=== PATIENT | male | born 1955 | race Caucasian/White ===

== ENCOUNTER 2018-12-23 17:53 | Emergency (ER) | payer BC ==
--- NOTE | 2018-12-23 18:09 | EDPHY ---
H & P Time Seen by Provider: 12/23/18 18:03 HPI/ROS: CHIEF COMPLAINT: Left shoulder pain HISTORY OF PRESENT ILLNESS: Patient is a 63-year-old man who was playing soccer and fell onto his left shoulder. His arm was tucked against his body. He has pain to his distal clavicle and shoulder. No neck or head pain. He also has some mild pain in his right hip and hamstring area that he thinks is a muscle pull. He has been able to ambulate without difficulty. He denies other injuries. Severity: Moderate Modifying factors: Pain worsens with movement REVIEW OF SYSTEMS: Constitutional: denies: chills, fever, recent illness, recent injury EENTM: denies: blurred vision, double vision, nose congestion Respiratory: denies: cough, shortness of breath Cardiac: denies: chest pain, irregular heart rate, lightheadedness, palpitations Gastrointestinal/Abdominal: denies: abdominal pain, diarrhea, nausea, vomiting, blood streaked stools Genitourinary: denies: dysuria, frequency, hematuria, pain Musculoskeletal: See HPI Skin: denies: lesions, rash, jaundice, bruising Neurological: denies: headache, numbness, paresthesia, tingling, dizziness, weakness Hematologic/Lymphatic: denies: blood clots, easy bleeding, easy bruising Immunologic/allergic: denies: HIV/AIDS, transplant 10 systems reviewed and negative except as noted EXAM: GENERAL: Well-appearing, well-nourished and in no acute distress. HEAD: Atraumatic, normocephalic. EYES: Pupils equal round and reactive to light, extraocular movements intact, sclera anicteric, conjunctiva are normal. ENT: TMs normal, nares patent, oropharynx clear without exudates. Moist mucous membranes. NECK: Normal range of motion, supple without lymphadenopathy or JVD. LUNGS: Breath sounds clear to auscultation bilaterally and equal. No wheezes rales or rhonchi. HEART: Regular rate and rhythm without murmurs, rubs or gallops. ABDOMEN: Soft, nontender, normoactive bowel sounds. No guarding, no rebound. No masses appreciated. BACK: No CVA tenderness, no spinal tenderness, step-offs or deformities EXTREMITIES: Step-off left lateral clavicle. Moderately tender. Normal range of motion of right hip and knee. No visible swelling or deformity. NEUROLOGICAL: Cranial nerves II through XII grossly intact. Normal speech, normal gait. 5/5 strength, normal movement in all extremities, normal sensation , normal reflexes PSYCH: Normal mood, normal affect. SKIN: Small abrasion left posterior shoulder. Warm, dry, normal turgor, no visible rashes or lesions. Source: Patient, Family Exam Limitations: No limitations - Personal History Current Tetanus/Diphtheria Vaccine: Yes - Medical/Surgical History Hx Asthma: No Hx Chronic Respiratory Disease: No Hx Diabetes: No Hx Cardiac Disease: No Hx Renal Disease: No Hx Cirrhosis: No Hx Alcoholism: No Hx HIV/AIDS: No Hx Splenectomy or Spleen Trauma: No - Family History Significant Family History: No pertinent family hx - Social History Alcohol Use: Sober Drug Use: None Constitutional: Initial Vital Signs Temperature (C) 36.6 C 12/23/18 18:12 Heart Rate 60 12/23/18 18:12 Respiratory Rate 18 12/23/18 18:12 Blood Pressure 147/83 H 12/23/18 18:12 O2 Sat (%) 93 12/23/18 18:12 O2 Delivery Mode Room Air Allergies/Adverse Reactions: No Known Allergies Allergy (Unverified 12/23/18 18:09) Home Medications: Medication Instructions Recorded Aspirin 12/23/18 Atorvastatin Calcium 12/23/18 Finasteride 12/23/18 Hydrocodone/APAP 5/325 [[place] 1 - 2 tab PO Q4H PRN #10 tab 12/23/18 5/325 (RX)] Losartan Potassium 12/23/18 Medical Decision Making - Diagnostics Imaging Results: Imaging Impressions Shoulder X-Ray 12/23/18 18:01 Impression: Type III acromioclavicular separation. Clavicle X-Ray 12/23/18 18:07 Impression: Type III acromioclavicular separation. Hip X-Ray 12/23/18 18:07 Impression: 1. Age indeterminate nondisplaced right inferior pubic ramus fracture. 2. Central bladder calcifications that could be related to bladder calcifications, ingested material, or less likely phleboliths. Findings discussed with MILES HERNANDEZ 12/23/2018 at 18:41. Imaging: Discussed imaging studies w/ knitted goods shaper Radiologist Procedures: Procedure: Splint placement. A sling was applied. After application of the splint I returned and re- examined the patient. The splint was adequately immobilizing the joint and distal to the splint the patient's circulation and sensation was intact. ED Course/Re-evaluation: 6:55 p.m. we discussed the x-ray results. The patient placed in a sling. We discussed the possible inferior pubic ramus fracture. He declines CT scan. He is able to ambulate without significant difficulty. I have paged Orthopedics for follow-up. 7:00 p.m. Discussed the case with Dr. Anderson who agrees with the plan and will follow up with him in 1 week. Differential Diagnosis: Partial list of the Differential diagnosis considered include but were not limited to; AC separation, clavicle fracture, shoulder dislocation, hip fracture, pubic ramus fracture and although unlikely based on the history and physical exam, I also considered hematoma, infection, head injury, neck injury. I discussed these differential diagnoses and the plan with the patient as well as the usual and expected course. The patient understands that the diagnosis is provisional and that in medicine we are not always correct and that further workup is often warranted. Usual and customary warnings were given. All of the patient's questions were answered. The patient was instructed to return to the emergency department should the symptoms at all worsen or return, otherwise to followup with the physician as we discussed. Departure - Departure Disposition: Home, Routine, Self-Care Clinical Impression: Separation of left acromioclavicular joint, type 3 Qualifiers: Encounter type: initial encounter Qualified Code(s): S43.102A - Unspecified dislocation of left acromioclavicular joint, initial encounter Inferior pubic ramus fracture Qualifiers: Encounter type: initial encounter Fracture type: closed Laterality: right Qualified Code(s): S32.591A - Other specified fracture of right pubis, initial encounter for closed fracture Condition: Fair Instructions: Acromioclavicular Separation (ED), Pelvic Fracture (ED) Referrals: NONE *PRIMARY CARE P,. [Unknown] - As per Instructions Kodi Anderson MD [Medical Doctor] - 5-7 days, call for appt. Prescriptions: Hydrocodone/APAP 5/325 [[place] 5/325 (RX)] 1 - 2 tab PO Q4H PRN #10 tab PRN Reason: Pain, Moderate
[2018-12-23 19:14] VITALS: BP 129/87
== END 2018-12-23 19:13 | disposition home or self-care (01) ==
LOC: CED 17:53
DX: S43.102A Unspecified dislocation of left acromioclavicular joint, initial encounter (principal); S32.591A Other specified fracture of right pubis, initial encounter for closed fracture; W19.XXXA Unspecified fall, initial encounter; Y93.66 Activity, soccer
CPT/HCPCS: 73000-PO; 73030-PO; 73502-PO; 99284-ER